=== PATIENT | male | born 1995 | race African-American/Black ===

== ENCOUNTER 2021-11-06 16:38 | Outpatient (CLI) | payer OTHER ==
[2021-11-06 17:06] LABS: PLATELET COUNT 260 K/uL (142-355)
[2021-11-06 17:10] LABS: POTASSIUM 3.7 mmol/L (3.6-5.2)
== END 2021-11-06 18:51 | disposition home or self-care (01) ==
LOC: LABW 16:38
PROVIDERS: ATTEND Nurse Practitioner Family
DX: R07.89 Other chest pain (principal)
CPT/HCPCS: 36415; 80053; 82550; 82553; 84484; 85027; 93005